=== PATIENT | male | born 1960 | race Caucasian/White ===

== ENCOUNTER 2023-02-24 20:10 | Outpatient (OUT) | payer MEDICARE, OTHER, SELFPAY | END 2023-02-24 20:11 | disposition home or self-care (01) | LOC: SLEEP 20:10 | PROVIDERS: PCP Internal Medicine; Visit Provider Internal Medicine | DX: G47.33 Obstructive sleep apnea (adult) (pediatric) (principal); G47.11 Idiopathic hypersomnia with long sleep time | CPT/HCPCS: 95811 ==